=== PATIENT | male | born 1980 | race American Indian/Alaskan Native ===

== ENCOUNTER 2018-07-29 17:53 | Emergency (ER) | payer MEDICAID ==
[2018-07-29] MEDS ORDERED: Bacitracin Oint 1 GM U/D Packet TOP ONE (18:33)
[2018-07-29] MEDS ORDERED: LORazepam 2 MG/ML SDV IM ONE (18:54)
--- NOTE | 2018-07-29 20:15 | EDM.PDOC ---
ED HPI GENERAL MEDICAL PROBLEM - General Chief Complaint: Laceration Stated Complaint: RIGHT HAND LACERATION Time Seen by Provider: 07/29/18 18:32 Source of Information: Reports: Patient History Limitations: Reports: No Limitations - History of Present Illness INITIAL COMMENTS - FREE TEXT/NARRATIVE: chief complaint: cut my hand This is a 38 year old male present to ER with Girlfriend, reports was at a friend's house helping out on a job, cut his right hand on a saw. reports no other injury. Onset: Today Onset Date: 07/29/18 Onset Time: 16:30 Duration: Hour(s): Location: Reports: Upper Extremity, Right (right palm) Quality: Reports: Burning, Sharp, Throbbing Severity: Moderate Improves with: Reports: Immobilization Worsens with: Reports: Movement Context: Reports: Other (injury to right palm from a saw) Associated Symptoms: Reports: No Other Symptoms Treatments PSYCHOLOGIST EXPERIMENTAL: Reports: Dressing(s) Right Hand Pain Score (Numeric/FACES): 6 - Related Data Allergies Allergy/AdvReac Type Severity Reaction Status Date / Time No Known Allergies Allergy Verified 07/29/18 18:12 Home Meds: Home Meds NK [No Known Home Meds] 07/29/18 [History] Social & Family History - Tobacco Use Smoking Status *Q: Light Tobacco Smoker Years of Tobacco use: 2 Packs/Tins Daily: 0.2 - Recreational Drug Use Recreational Drug Use: No ED ROS GENERAL - Review of Systems Review Of Systems: See Below Constitutional: Reports: Other (right hand palm laceration) HEENT: Reports: No Symptoms Respiratory: Reports: No Symptoms Cardiovascular: Reports: No Symptoms Endocrine: Reports: No Symptoms Psychiatric: Reports: Anxiety (Mr. Castaneda is experiencing a panic/anxiety attack from looking at bloody hand.) Hematologic/Lymphatic: Reports: No Symptoms Immunologic: Reports: No Symptoms ED EXAM, SKIN/RASH Exam: See Below Exam Limited By: No Limitations General Appearance: Alert, WD/WN, Anxious, Moderate Distress Eye Exam: Bilateral Eye: Normal Inspection Ears: Normal External Exam Nose: Normal Inspection Throat/Mouth: Normal Inspection Head: Atraumatic, Normocephalic Neck: Normal Inspection, Supple, Non-Tender Respiratory/Chest: No Respiratory Distress Extremities: Normal Range of Motion (right hand including thumb with flexion and extension of fingers and thumb), Other (right hand pain from laceration) Psychiatric: Anxious, Tearful, Other (panic attack) Skin: Warm, Dry, Wound/Incision (3 cm linear laceration to palm of right hand. ) Location, Skin: Palms (right) Characteristics: Linear Lymphatic: No Adenopathy ED SKIN PROCEDURES - Laceration/Wound Repair Right Posterior Hand Lac/Wound length In cm: 3 Appearance: Subcutaneous Distal NVT: Neuro & Vascular Intact, No Tendon Injury Anesthetic Type: Local Local Anesthesia - Lidocaine (Xylocaine): 1% Plain Local Anesthetic Volume: 4cc Skin Prep: Providone-Iodine (Betadine), Saline Exploration/Debridement/Repair: Wound Explored, No Foreign Material Found Closed with: Sutures Suture Size: 4-0 # of Sutures: 7 Suture Type: Prolene Sterile Dressing Applied: Provider Tetanus Status Addressed: Other (last Td 2015) Complications: No Course - Vital Signs Last Recorded V/S: Last Vital Signs Temp 36.9 C 07/29/18 18:10 Pulse 80 07/29/18 18:10 Resp 18 07/29/18 18:10 BP 136/80 07/29/18 18:10 Pulse Ox 98 07/29/18 18:10 - Orders/Labs/Meds Meds: Medications Discontinued Medications Generic Name Dose Route Start Last Admin Trade Name Freq PRN Reason Stop Dose Admin Bacitracin 1 dose 07/29/18 18:33 07/29/18 19:00 Bacitracin Oint 1 Gm TOP 07/29/18 18:34 1 dose ONETIME ONE Administration Lidocaine HCl 5 ml 07/29/18 18:32 07/29/18 19:01 Xylocaine-Mpf 1% INJECT 07/29/18 18:33 5 ml ONETIME ONE Administration Lorazepam 1 mg 07/29/18 18:54 07/29/18 19:00 Ativan IM 07/29/18 18:55 1 mg ONETIME ONE Administration - Re-Assessments/Exams Free Text/Narrative Re-Assessment/Exam: 07/29/18 20:28 Mr. Castaneda experience a panic attack prior to anesthesia local with Lidocaine 1% . He became diaphoretic, tearful, moving all over the stretcher. unable to inject Lidocaine. He was given Ativan 1 mg IM, waited 45 minutes, then with the assistance of his Girlfriend, able to proceed with laceration repair. He still was experiencing mild anxiety, but able to tolerated the repair of laceration. Departure - Departure Time of Disposition: 20:10 Disposition: Home, Self-Care 01 Condition: Good Clinical Impression: Laceration of right palm without complication Qualifiers: Encounter type: initial encounter Qualified Code(s): S61.411A - Laceration without foreign body of right hand, initial encounter - Discharge Information *PRESCRIPTION DRUG MONITORING PROGRAM REVIEWED*: No *COPY OF PRESCRIPTION DRUG MONITORING REPORT IN PATIENT PERRI: No Instructions: Pain Medicine Instructions, [id number], Sutured Wound Care, [id number] Referrals: PCP,None [Primary Care Provider] - Forms: ED Department Discharge Care Plan Goals: Laceration of right hand with suture repair -keep covered x 2 days, then keep clean and apply bandage -Ibuprofen 600mg one every 6 to 8 hours as needed for pain #30 -Hydrocodone 5-325mg one every 4 to 6 hours as needed for pain #4 -Keflex 500 mg one morning and evening for 7 days monitor for signs of infection; redness, drainage, increase pain or swelling, fever or chills, will need to return to ER for recheck wound in 3 days in Primary Care stitches removal in 7 to 10 days Return to ER if has any concerns or not improved - Problem List & Annotations (1) Laceration of right palm without complication SNOMED Code(s): 361239852 Code(s): S61.411A - LACERATION WITHOUT FOREIGN BODY OF RIGHT HAND, INIT ENCNTR Status: Acute Priority: High Current Visit: Yes Qualifiers: Encounter type: initial encounter Qualified Code(s): S61.411A - Laceration without foreign body of right hand, initial encounter - Problem List Review Problem List Initiated/Reviewed/Updated: Yes - Assessment/Plan Plan: Laceration of right hand with suture repair -keep covered x 2 days, then keep clean and apply bandage -Ibuprofen 600mg one every 6 to 8 hours as needed for pain #30 -Hydrocodone 5-325mg one every 4 to 6 hours as needed for pain #4 -Keflex 500 mg one morning and evening for 7 days monitor for signs of infection; redness, drainage, increase pain or swelling, fever or chills, will need to return to ER for recheck wound in 3 days in Primary Care stitches removal in 7 to 10 days Return to ER if has any concerns or not improved
== END 2018-07-29 20:24 | disposition home or self-care (01) ==
LOC: JP.ED 17:53
DX: S61.411A Laceration without foreign body of right hand, initial encounter (principal); F17.210 Nicotine dependence, cigarettes, uncomplicated; W31.2XXA Contact with powered woodworking and forming machines, initial encounter
CPT/HCPCS: 12002; 96372; 99282; J2001; J2060